=== PATIENT | male | born 1985 | race Caucasian/White ===

== ENCOUNTER 2022-03-07 08:19 | Inpatient (IN) ==
[2022-03-07] MEDS ORDERED: *HR* LORazepam 0.5 MG TABLET PO ONE (08:55)
[2022-03-07] MEDS ORDERED: methocarbamoL 500 MG TABLET PO ONE (08:56)
[2022-03-07 09:22] LABS: Bilirubin,Urine Negative (Negative); Blood,Urine Negative (Negative); Clarity,Urine Clear (Clear); Color,Urine Light-Yellow (Yellow); Glucose,Urine (UA) Normal (Normal); Ketones,Urine Negative (Negative); Leukocyte Esterase,Urine Negative (Negative); Nitrite,Urine Negative (Negative); Protein,Urine Trace mg/dL (Neg-Trace); Specific Gravity,Urine 1.022 (1.010-1.025); Urobilinogen,Urine Normal (Normal)
[2022-03-07 10:36] LABS: Amphetamine Screen,Urine Positive ng/mL (Cutoff=1000); Barbiturate Screen,Urine Negative ng/mL (Cutoff=200); Benzodiazepines Screen,Urine Negative ng/mL (Cutoff=200); Cannabinoid Screen,Urine Positive ng/mL (Cutoff = 50); Cocaine Screen,Urine Negative ng/mL (Cutoff= 300); Opiate Screen,Urine Negative ng/mL (Cutoff=300); Phencyclidine Screen,Urine Negative ng/mL (Cutoff=25)
[2022-03-07] MEDS ORDERED: Ondansetron ODT 4 MG TAB.RAPDIS SL ONE (13:05)
[2022-03-07 16:06] LABS: Influenza A PCR Negative (Negative); Influenza B PCR Negative (Negative); Resp. Syncytial Virus PCR Negative (Negative)
[2022-03-07 16:07] LABS: SARS-CoV-2 by PCR (In House) Negative (Negative)
[2022-03-07] MEDS ORDERED: *HR* LORazepam 2 MG/ML VIAL IM PRN (18:33)
[2022-03-07] MEDS ORDERED: traZODone 50 MG TABLET PO PRN (18:33)
[2022-03-07] MEDS ORDERED: *HR* LORazepam 1 MG TABLET PO PRN (18:33)
[2022-03-07] MEDS ORDERED: haloperidoL 5 MG TABLET PO PRN (18:33)
[2022-03-07] MEDS ORDERED: Haloperidol Lactate 5 MG/ML VIAL IM PRN (18:33)
[2022-03-07] MEDS: hydrOXYzine pamoate 25 MG CAPSULE PO PRN (21:24)
[2022-03-07] MEDS: Acetaminophen 325 MG TABLET PO PRN (21:24)
[2022-03-08] MEDS ORDERED: Ibuprofen 800 MG TABLET PO PRN (04:29)
[2022-03-08] MEDS: Acetaminophen 325 MG TABLET PO PRN (09:27)
[2022-03-08] MEDS: hydrOXYzine pamoate 25 MG CAPSULE PO PRN ×2 (11:29→19:59)
[2022-03-08] MEDS ORDERED: MOM Conc 10 ML UD.LIQ PO PRN (11:37)
[2022-03-08] MEDS ORDERED: Mag Hydrox/Al Hydrox/Simeth 30 ML UDC PO PRN (11:37)
[2022-03-08] MEDS: Nicotine 2 MG GUM BC PRN ×2 (18:24→21:34)
[2022-03-08 20:47] VITALS: O2SAT 99
[2022-03-09 09:54] VITALS: BP 134/90; PULSE 72; TEMP 97.1
== END 2022-03-09 12:00 | disposition home or self-care (01) | DRG 754 ==
LOC: EMEROOARM 08:19 → 1ANU 18:35
PROVIDERS: ADMIT Psychiatry & Neurology Psychiatry; ATTEND Psychiatry & Neurology Psychiatry